=== PATIENT | male | born 1990 | race Caucasian/White ===

== ENCOUNTER 2018-10-20 22:31 | Emergency (ER) | payer SELFPAY ==
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
== END 2018-10-20 23:07 | disposition home or self-care (01) ==
LOC: MW.ED 22:31
DX: S09.90XA Unspecified injury of head, initial encounter (principal); S40.022A Contusion of left upper arm, initial encounter; F17.210 Nicotine dependence, cigarettes, uncomplicated; Y09 Assault by unspecified means
CPT/HCPCS: 99283; 99284